=== PATIENT | male | born 1960 | race Caucasian/White ===

== ENCOUNTER 2016-05-06 05:59 | Outpatient (CLI) | payer BC ==
[~2016-05-06] VITALS: Ht 185.4 cm; Wt 95.3 kg
[2016-05-06] MEDS ORDERED: MULT-35 PO (15:03)
[2016-05-06] MEDS ORDERED: FISH OIL DR 1,1 EAC1 PO (15:03)
[2016-05-06] MEDS ORDERED: LISI1TAB10 PO (15:03)
[2016-05-06] MEDS ORDERED: ATOR40TA PO (15:03)
== END 2016-05-06 15:15 ==
LOC: PREOP 05:59
PROVIDERS: ATTEND Internal Medicine
DX: Z01.818 Encounter for other preprocedural examination (principal); Z12.11 Encounter for screening for malignant neoplasm of colon; R19.5 Other fecal abnormalities

== ENCOUNTER 2016-05-08 09:41 | Day surgery (SDC) | payer BC ==
[~2016-05-08] VITALS: Ht 185.4 cm; Wt 95.3 kg
[~2016-05-08 09:41] MED LIST: ATOR40TA PO; FISH OIL DR 1,1 EAC1 PO; LISI1TAB10 PO; MULT-35 PO
--- OUTSIDE RECORDS SUMMARY | 2016-05-08 09:46 | XMS REPORT | Continuity of Care Document ---
Author Author [facility] Organization [facility] Address Unknown Phone Unavailable Support Name Relationship Address Phone LESLEY BAGLEY MD Caregiver [address], [address] [place] [address] SAVANNAH ADAM Next Of Kin [address] [place], [place] [id number] Insurance Providers Payer Name Policy Number Subscriber Name Relationship [facility] [id number] Deonte Adam 16 Self / Same As Patient Advance Directives Directive Response Recorded Date/Time Advance Directives No 05/06/16 3:00pm Health Care Power of Radio Station Engineer No 05/06/16 3:00pm Resuscitation Status Full Code 05/06/16 3:00pm Problems No problem information available. Medications Current Home Medications Medication Dose Units Route Directions Days/Qty Instructions Start Date Lisinopril/Hydrochlorothiazide 1 Each 1 Each Oral Daily 05/06/16 Atorvastatin Calcium 40 Mg 40 Mg Oral Daily 05/06/16 [place]-3 Fatty Acids/Fish Oil 1 Each 1 Each Oral Daily 05/06/16 Multivitamin 1 Each 1 Each Oral Daily 05/06/16 Social History Social History Problem Response Recorded Date/Time Alcohol Use Regular Use 05/06/2016 3:00pm Recreational Drug Use No 05/06/2016 3:00pm Recent Foreign Travel No 05/06/2016 2:59pm Recent Infectious Disease Exposure No 05/06/2016 2:59pm Sexually Transmitted Disease No 05/06/2016 3:00pm HIV/AIDS No 05/06/2016 3:00pm Smoking Status Former Smoker 05/06/2016 3:00pm Recent Hopitalizations No 05/06/2016 3:00pm Sexually Transmitted Disease No 05/06/2016 3:00pm Query Response Start Date Stop Date Smoking Status Former Smoker Hospital Discharge Instructions No hospital discharge instructions. Plan of Care Discharge Date 05/06/16 3:15pm Prescriptions See Medication Section Functional Status No functional status results. Allergies, Adverse Reactions, Alerts No known allergies. Immunizations No immunization records. Vital Signs Acute Vital Signs Vital Response Date/Time Height (Feet) 6 feet 05/06/2016 2:59pm Height (Inches) 1.00 inches 05/06/2016 2:59pm Height (Calculated Centimeters) 185.707028 cm 05/06/2016 2:59pm Weight (Pounds) 210 pounds 05/06/2016 2:59pm Weight (Ounces) 0.0 oz 05/06/2016 2:59pm Weight (Calculated Grams) 02258.40 gm 05/06/2016 2:59pm Weight (Calculated Kilograms) 95.481104 kilograms 05/06/2016 2:59pm Calculated BMI 27.7 05/06/2016 2:59pm Results No known relevant diagnostic tests, laboratory data and/or discharge summary. Procedures No known history of procedures. Encounters Encounter Location Arrival/Admit Date Discharge/Depart Date Attending Provider Departed Clinic [facility] 05/06/16 5:59am 05/06/16 3: 15pm LESLEY BAGLEY MD
--- OUTSIDE RECORDS SUMMARY | 2016-05-08 09:46 | XMS REPORT | Continuity of Care Document ---
Author Author [facility] Organization [facility] Address Unknown Phone Unavailable Support Name Relationship Address Phone LESLEY BAGLEY MD Caregiver [address], [address] [place] [address] SAVANNAH ADAM Next Of Kin [address] [place], [place] [id number] Insurance Providers Payer Name Policy Number Subscriber Name Relationship [facility] [id number] Deonte Adam 16 Self / Same As Patient Advance Directives Directive Response Recorded Date/Time Advance Directives No 05/06/16 3:00pm Health Care Power of Email Marketer No 05/06/16 3:00pm Resuscitation Status Full Code 05/06/16 3:00pm Problems No problem information available. Medications Current Home Medications Medication Dose Units Route Directions Days/Qty Instructions Start Date Lisinopril/Hydrochlorothiazide 1 Each 1 Each Oral Daily 05/06/16 Atorvastatin Calcium 40 Mg 40 Mg Oral Daily 05/06/16 [place]-3 Fatty Acids/Fish Oil 1 Each 1 Each [...] 1.00 inches 05/06/2016 2:59pm Height (Calculated Centimeters) 185.931421 cm 05/06/2016 2:59pm Weight (Pounds) 210 pounds 05/06/2016 2:59pm Weight (Ounces) 0.0 oz 05/06/2016 2:59pm Weight (Calculated Grams) 51639.40 gm 05/06/2016 2:59pm Weight (Calculated Kilograms) 95.859853 kilograms 05/06/2016 2:59pm Calculated BMI 27.7 05/06/2016 2:59pm Results No known relevant diagnostic tests, laboratory data and/or discharge summary. Procedures No known history of procedures. Encounters Encounter Location Arrival/Admit Date Discharge/Depart Date Attending Provider Departed Clinic [facility] 05/06/16 5:59am 05/06/16 3: 15pm LESLEY BAGLEY MD
[2016-05-08] MEDS ORDERED: 1/2 NS IV SOLUTION 1,000 ML IV STA (09:51)
[2016-05-08] MEDS ORDERED: FLUMAZENIL (ROMAZICON) 0.1 MG/ML 5 ML VIAL INJ PRN (10:00)
[2016-05-08] MEDS ORDERED: MIDAZOLAM 2 MG/2 ML (VERSED) VIAL IVP PRN (10:00)
[2016-05-08] MEDS ORDERED: LIDOCAINE JELLY 2% (XYLOCAINE) 5 ML TUBE MM PRN (10:00)
[2016-05-08] MEDS ORDERED: NALOXONE 0.4 MG/ML 1 ML (NARCAN) VIAL IVP PRN (10:00)
[2016-05-08] MEDS ORDERED: fentaNYL INJECTION 100 MCG/2 ML AMP IVP PRN (10:00)
[2016-05-08] MEDS ORDERED: NS IV 1000 ML 1,000 ML ONE (10:02)
[2016-05-08] MEDS ORDERED: NS IV 1000 ML 1,000 ML IV SCH (10:15)
[2016-05-08 10:22] VITALS: BP 120/98
[2016-05-08] MEDS ORDERED: LIDOCAINE JELLY 2% (XYLOCAINE) 5 ML TUBE ONE (10:47)
[2016-05-08] MEDS ORDERED: fentaNYL INJECTION 100 MCG/2 ML AMP ONE (10:47)
[2016-05-08] MEDS ORDERED: MIDAZOLAM 2 MG/2 ML (VERSED) VIAL ONE (10:47)
--- NOTE | 2016-05-08 11:13 | HISTORY AND PHYSICAL ---
DICTATING PHYSICIAN: Dr. Gutierrez DATE OF ADMISSION: 05/08/2016 Mr. Adam is a 56-year-old white male who presented for new patient evaluation on 04/29. He reports he has had viral URI symptoms for the last 2 weeks and feels as though he is getting better. He does have a past history of hypertension, hyperlipidemia. He had initially been given a statin. He had some left shoulder pain that he thought might be related to the statin, stopped it and was placed on Zetia. His shoulder pain really did not improve much until he underwent arthroscopy and he was noted to have an impingement syndrome noted. He underwent repair and has done relatively well since. He has remained on Zetia since. He has no known history of cardiovascular disease. He had one syncopal episode in 2009 but has had no subsequent episodes. He reports he generally feels well and remains physically active. He has not previously undergone screening colonoscopy. He has not aware of any family history for colon cancer. There is a family history for early coronary artery disease. His father of a heart attack at age 52. Mother is living at the age of 74, with history of diabetes and high blood pressure. His father ultimately of carcinoma of the larynx and was a heavy smoker. He has 2 brothers and one sister in their 40s and 50s, all have hypertension. SOCIAL HISTORY: He has a past history of smoking 30 pack-years but quit in 1986. He drinks on average 2 beers each evening, rarely more than that. MEDICATIONS: 1. On admission include Lisinopril/hct 20/25 2. Zetia. 3. Multiple vitamin. 4. Fish oil. 5. Turmeric. PHYSICAL EXAMINATION: Reveals a pleasant white male, appears in no acute distress. VITAL SIGNS: Blood pressure is 130/90, heart rate 72 and regular. HEENT EXAMINATION: Unremarkable. NECK: Revealed no JVD, adenopathy or bruits. CHEST: Clear. CV: Revealed a regular rate and rhythm without murmur, S3 or S4. ABDOMEN: Soft, supple without masses, organomegaly or tenderness. RECTAL EXAMINATION: Deferred to time of screening colonoscopy. EXTREMITIES: Reveal no cyanosis, clubbing, or edema. Flu shot was given after discussion. Prep instructions with Hernadez-prep kit were given and the patient was set-up for screening colonoscopy after discussion of rationale. The patient was scheduled for follow-up in 6 months. Chemistry panel and a lipid panel as well as PSA were sent off. Results returned his psa was low at .45. His triglyceride level was mildly elevated at 370, LDL was not calculated due to elevated triglyceride level. His total cholesterol was 236 with an HDL of 49. At the time of colonoscopy we will be recommending that he go back on statin therapy and that we discontinue the Zetia. The remainder of his chemistry panel including blood sugar at 84, liver function studies and electrolytes were all normal. He Was switched from zetia to Lipitor 40mg daily with repeat lipid panel in 6 months. Job ID: [id number] Dictated Date: 05/04/2016 20:07:00 Transportation Planning Engineer Date: 05/05/2016 08:50:17/rai ROUSSEAU
--- NOTE | 2016-05-08 11:40 | Pre-Op Note & Conscious Sedat ---
Pre-Operative Progress Note H&P Reviewed The H&P was reviewed, patient examined and no changes noted. Date H&P Reviewed: May 08, 2016 Time H&P Reviewed: 10:55 Conscious Sedation Pre-Proced ASA Class: 1 Airway Mallampati Classification: ([place] appropriate class) I. II. III, IV Lungs Heart ASA score ASA 1: a normal healthy patient ASA 2: a patient with a mild systemic disease (mid diabetes, controlled hypertension, obesity ASA 3: a patient with a severe systemic disease that limits activity (angina , COPD, prior Myocardial infarction) ASA 4: a patient with an incapacitating disease that is a constant threat to life (CHF, renal failure) ASA 5: a moribund patient not expected to survive 24 hrs. (ruptured aneurysm) ASA 6: a declared brain patient whose organs are being harvested. For emergent operations, add the letter E after the classification Grade 2 Sedation Plan: Analgesia, Amnesia, Plan communicated to team members, Discussed options with patient/fam, Discussed risks with patient/fam Note The patient is an appropriate candidate to undergo the planned procedure, sedation, and anesthesia. The patient immediately re-assessed prior to indication. LESLEY BAGLEY MD May 08, 2016 11:40
[2016-05-08 11:45] VITALS: BP 124/79
[2016-05-08 12:10] VITALS: BP 109/79
[2016-05-08 12:15] VITALS: BP 109/79
[2016-05-08 12:17] VITALS: BP 109/79
--- NOTE | 2016-05-10 08:36 | PROCEDURE REPORT ---
PROCEDURE PHYSICIAN: LESLEY BAGLEY DATE OF PROCEDURE: 05/08/2016 COLONOSCOPY SUMMARY: Screening colonoscopy PROCEDURE: The patient was placed in the left lateral decubitus position. Prior to undergoing colonoscopy, digital rectal evaluation was performed. Anal sphincter tone was normal and the perianal reflex was intact. The prostate was mildly enlarged, anodular and nontender to digital inspection. No abnormalities were noted to digital inspection of the anal canal or distal rectal vault. The colonoscope was then inserted into the rectum and under direct visualization, advanced to the cecum. The cecum was identified by identification of the ileocecal valve and cecal strap, as well as appendiceal orifice. Photographic documentation was obtained. Careful inspection was made as the colonoscope was withdrawn. The patient did have a mild vagal response, but did not require medication, just increasing IV fluids and pausing. FINDINGS: There was evidence for internal or external hemorrhoids and the rectum was unremarkable. Several small sigmoid diverticulum were present, without evidence for diverticulitis. The sigmoid colon somewhat otherwise unremarkable. The descending colon, splenic flexure, transverse colon, hepatic flexure, ascending colon and cecum were unremarkable. ASSESSMENT: Mild diverticular disease confined to the sigmoid colon was present in addition to mild BPH on digital evaluation. This was an otherwise normal colonoscopy to the cecum. The patient's does report that his grandmother had a history of colon cancer and one cousin had a history of colon cancer. Will likely advocate consideration for repeat screening colonoscopy in 5 years. Job ID: [id number] Dictated Date: 05/08/2016 13:09:51 Painter Sign Maintenance Date: 05/10/2016 08:29:35 / mouna ROUSSEAU
== END 2016-05-08 12:15 | disposition home or self-care (01) ==
LOC: ENDO 09:41
PROVIDERS: ATTEND Internal Medicine
DX: Z12.11 Encounter for screening for malignant neoplasm of colon (principal); K57.30 Diverticulosis of large intestine without perforation or abscess without bleeding; N40.0 Benign prostatic hyperplasia without lower urinary tract symptoms; Z80.0 Family history of malignant neoplasm of digestive organs